=== PATIENT | male | born 1960 | race Caucasian/White ===

== ENCOUNTER 2023-01-24 11:52 | Emergency (ER) | payer MEDICARE ==
--- OUTSIDE RECORDS SUMMARY | 2023-01-24 11:56 | XMS REPORT | Continuity of Care Document ---
:1960 Author Organization [facility] t Address [address] [place] [address] [place] [id number] Care Team Providers Name Role Phone Nereida Mcgrath Attending Clinician Byrd_L Attending Clinician Unavailable PAOLO Attending Clinician Unavailable Maggie Attending Clinician Unavailable BWann Attending Clinician Unavailable Varun Rodriguez Attending Clinician Byrd_L Admitting Clinician Unavailable COOKIE_Sharron Admitting Clinician Unavailable Gurpreet_Malgorzata Admitting Clinician Unavailable BWann Admitting Clinician Unavailable Payers Payer Name Policy Type Policy Number Effective Date Expiration Date S radha [facility] [id number] 2021 (MEDICARE 00:00:00 REPLACEMENT HMO) Problems Condition Condition Condition Status Onset Resolution Last Treating Co mments Source Name Details Category Date Date Treatment Clinician Date Cervical Cervical Problem Active 2019-09-02 Memoria radiculopa radiculopa 23:23:12 l thy thy [place] (disorder) (disorder) Active Problem 09/02/2019 [facility] Disorder Disorder Problem Active 2019-09-02 Memoria of rotator of rotator 23:23:12 l cuff cuff [place] (disorder) (disorder) Active Problem 09/02/2019 [facility] Hypertensi Hypertens Problem Active 2019-09-02 Memoria ve malaika 23:23:12 l disorder, disorder, Herm leonarda systemic systemic arterial arterial (disorder) (disorder) Active Problem 09/02/2019 [facility] Neck pain Neck Problem Active 2019-09-02 Me moria (finding) pain 23:23:12 l (finding) [place] Active Problem 09/02/2019 [facility] Paresthesi Paresthes Problem Active 2019-09-02 Memoria a ia 23:23:12 l (finding) (finding) Herm leonarda Active Problem 09/02/2019 [facility] Allergies, Adverse Reactions, Alerts Allergy Allergy Status Severity Reaction(s) Onset Inactive Treating Comm ents Source Name Type Date Date Clinician No Known No Known Active Dinesh Iglesias Medicati l on on Ryan Allergie Allergie s s Social History Smoking Status Start Date Stop Date Source Social History 2018-01-08 20:41:16 [facility] Medications This patient has no known medications. Procedures This patient has no known procedures. Encounters Start End Encounter Admission Attending Care Care Encounter Source Date/Time Date/Time Type Type Clinicians Facility Department ID 2022-09-20 2022-09-20 CAV Nereida [id number] [facility] [id number] [facility] 15:30:00 16:30:00 Cookie [id number] Medical [id number] 2022-09-08 2022-09-08 Outpatient Byrd_L [facility] [id number] [facility] 00:00:00 00:00:00 [id number] Medica l Group 2022-09-08 2022-09-08 [facility] [id number] 00:00:00 00:00:00 [id number] Medica l Group 2022-04-05 2022-04-05 Outpatient Byrd_L [facility] [place] [id number] [facility] 00:00:00 00:00:00 [id number] Medica l Group 2022-04-05 2022-04-05 Outpatient Byrd_L G [facility] [place] [id number] [facility] 00:00:00 00:00:00 [id number] Medica l Group 2021-12-28 2021-12-28 Outpatient GAYLORD_S [facility] [id number] [facility] 00:00:00 00:00:00 [id number] Medica l Group 2021-12-25 2021-12-25 CAV Nereida [id number]. [id number]. CLAC [id number] [facility] 17:30:00 18:30:00 [place] [id number] Medical [id number] 2021-12-24 2021-12-24 Outpatient GAYLORD_S [facility] [id number] [facility] 00:00:00 00:00:00 [id number] Medica l Group 2021-12-17 2021-12-17 Outpatient Williams_V [facility] [id number] [facility] 00:00:00 00:00:00 [id number] Medica l Group 2021-12-04 2021-12-04 Outpatient BWilliams [facility]G [id number] [facility] 00:00:00 00:00:00 [id number] Medica l Group 2021-11-23 2021-11-23 Outpatient DMG DMG [id number] [facility] 03:46:00 03:46:00 [id number] Medica l Group 2021 2021 Outpatient DMG DMG [id number] [facility] 09:00:00 09:00:00 [id number] Medica l Group 2019-08-30 2019-09-01 Outside nullFlavo MNA [id number] Memoria 15:29:54 04:59:59 Medical r Neurology 03 l Records Mason Alexanderann 2019-08-30 2019-08-31 Outpatient MHMISCHER MHMISCHER [id number] 10:29:54 23:59:59 03 2019-05-21 2019-05-23 Outside nullFlavo MNA [id number] Memoria 14:57:04 05:59:59 Medical r Neurology 02 l Records Homertoshia Alexanderann 2019-05-21 2019-05-22 Outpatient MHMISCHER MHMISCHER [id number] 08:57:04 23:59:59 02 2018-04-16 2018-04-16 Ambulatory nullFlavo MNA [id number] Memoria 15:15:00 15:15:00 Pre-Reg r Neurology 03 l Mason Davis 2018-04-16 2018-04-16 Outpatient MHIE MHIE [id number] Memoria 09:15:00 09:15:00 Niru Davis 2018-04-16 2018-04-16 Outpatient Michael MHMISCHER MHMISCHER [id number] 09:15:00 09:15:00 Varun Mckeon 2018-01-08 2018-01-08 Outpatient MHIE MHIE [id number] Memoria 15:15:00 15:15:00 02 l Ryan 2017-12-11 2017-12-11 Outpatient [facility] [id number] Memoria 15:45:00 15:45:00 01 yong Davis 2017-11-25 2017-11-25 Outpatient [facility] [id number] Memoria 13:30:00 13:30:00 00 yong Davis Results This patient has no known results.
[2023-01-24 12:32] LABS: Absolute Lymphocytes (CBC) 1.2 K/uL (0.7-4.9); Lymphocytes % 36.7 % (15.3-44.8); MCV 94.3 fL (80-100); Platelets 271 thou/uL (152-406); RBC Red Blood Cell Count 4.45 M/uL (4.33-5.43)
[2023-01-24] MEDS ORDERED: NA CHLORIDE 0.9% 1,000 ML ONE (12:38)
[2023-01-24 12:42] LABS: Protime INR 1.11
[2023-01-24 12:50] LABS: Albumin 3.4 g/dL (3.4-5.0); Bilirubin Total 0.4 mg/dL (0.2-1.0); Potassium 3.9 mEq/L (3.5-5.1); Protein, Total 7.2 g/dL (6.4-8.2)
[2023-01-24 12:56] LABS: Specific Gravity 1.027 (1.005-1.030); Urine Bacteria <20 /HPF (<20); Urine Bilirubin NEGATIVE (Negative); Urine Blood 3+ (OVER) (Negative); Urine Clarity Extremely Turbid (Clear); Urine Color Brown (Yellow); Urine Glucose TRACE (Negative); Urine Mucus 3+ /HPF (None Seen); Urine Protein 2+ (Negative); Urine RBC >50 /HPF (None Seen); Urine Urobilinogen Normal (Normal)
--- NOTE | 2023-01-24 13:37 | RAD REPORT ---
EXAM DESCRIPTION: CT - Abdomen Pelvis W Contrast - 01/24/2023 1:04 pm CLINICAL HISTORY: Hematuria COMPARISON: none. TECHNIQUE: Computed axial tomography of the abdomen pelvis was obtained. 100 cc Isovue-300 was admin istered intravenously. Oral contrast was not requested which limits evaluation of bowel and appendix All CT scans are performed using dose optimization technique as appropriate and may include automated exposure control or mA/KV adjustment according to patient size. FINDINGS: Tiny right renal calculi. No hydronephrosis. 2.3 centimeter cyst 2.7 centimeter calculus left renal pelvis with mild to moderate hydronephrosis. Additional tiny left renal calculi Small right inguinal hernia contains a portion of bladder. Small left inguinal hernia containing fat The liver, spleen, pancreas and right adrenal gland demonstrate no significant abnormality. 2.7 x 1 centimeter left adrenal mass Hounsfield units 30 Moderate hiatal hernia Prominent spondylosis L2-3. Atherosclerosis. No evidence diverticulitis IMPRESSION: 2.7 centimeter calculus left renal pelvis resulting in mild to moderate hydronephrosis Small right inguinal hernia contains a portion of the bladder 2.7 centimeter left adrenal mass nonspecific but probably an adenoma. This could be confirmed with no nemergent MRI
--- NOTE | 2023-01-24 13:53 | ER ---
Nurse's Notes [facility] Name: Matt Bajwa Age: 62 yrs Sex: Male : 1960 Arrival Date: 01/24/2023 Time: 11:52 Bed 15 Private MD: Diagnosis: Gross hematuria;UTI/ Urinary tract infection, site not specified;2.7 cm calculus left renal pelvis with mild to moderate hydronephrosis Presentation: 01/24 12:09 Chief complaint: Blood in urine since this morning. Denies pain. Coronavirus screen: At this time, the client does not indicate any symptoms associated with coronavirus-19. Ebola Screen: No symptoms or risks identified at this time. Initial Sepsis Screen: Does the patient meet any 2 criteria? No. Patient's initial sepsis screen is negative. Does the patient have a suspected source of infection? No. Patient's initial sepsis screen is negative. Risk Assessment: Do you want to hurt yourself or someone else? Patient reports no desire to harm self or others. Onset of symptoms was January 24, 2023. 12:09 Method Of Arrival: Ambulatory hb 12:09 Acuity: JEFFERY 3 hb Historical: - Allergies: 12:10 No Known Allergies; hb - Home Meds: 12:10 Lisinopril Oral [Active]; Anoro Ellipta inhalation [Active]; gabapentin oral [Active]; hb Buspirone Oral [Active]; meloxicam oral [Active]; - PMHx: 12:10 Hypertensive disorder; hb - Immunization history:: Adult Immunizations up to date. - Social history:: Smoking status: Patient reports the use of cigarette tobacco products, smokes one pack cigarettes per day. Screenin:06 [facility] ED Fall Risk Assessment (Adult) History of falling in the last 3 months, mb9 including since admission No falls in past 3 months (0 pts) Confusion or Disorientation No (0 pts) Intoxicated or Sedated No (0 pts) Impaired Gait No (0 pts) Mobility Assist Device Used No (0 pt) Altered Elimination No (0 pt) Score/Fall Risk Level 0 - 2 = Low Risk Oriented to surroundings, Maintained a safe environment, Educated pt \T\ family on fall prevention, incl call for assistance when getting out of bed. Abuse screen: Denies threats or abuse. Nutritional screening: No deficits noted. Tuberculosis screening: No symptoms or risk factors identified. Assessment: 12:29 General: Appears in no apparent distress. Pain: Denies pain. Neuro: [facility] mb9 Agitation-Sedation Scale (RASS): 0 - Alert and Calm Level of Consciousness is awake, alert, obeys commands, Oriented to person, place, time, situation, Appropriate for age Reports weakness. Cardiovascular: Heart tones S1 S2 present Patient's skin is warm and dry. Respiratory: Airway is patent Respiratory effort is even, unlabored, Respiratory pattern is regular, symmetrical, Breath sounds are clear bilaterally. GI: Abdomen is flat, non-distended, Bowel sounds present X 4 quads. Reports nausea. : Urine is blood tinged. EENT: No signs and/or symptoms were reported regarding the EENT system. Derm: Skin is pink, warm \T\ dry. Musculoskeletal: Range of motion: intact in all extremities. 13:21 Reassessment: No changes from previously documented assessment. Patient and/or family mb9 updated on plan of care and expected duration. Pain level reassessed. Patient is alert, oriented x 3, equal unlabored respirations, skin warm/dry/pink. 14:25 Reassessment: No changes from previously documented assessment. Patient and/or family mb9 updated on plan of care and expected duration. Pain level reassessed. Patient is alert, oriented x 3, equal unlabored respirations, skin warm/dry/pink. 15:25 Reassessment: No changes from previously documented assessment. Patient and/or family mb9 updated on plan of care and expected duration. Pain level reassessed. Patient denies pain at this time. 16:25 Reassessment: Patient and/or family updated on plan of care and expected duration. Pain mb9 level reassessed. Patient is alert, oriented x 3, equal unlabored respirations, skin warm/dry/pink. Patient denies pain at this time. 17:30 Reassessment: No changes from previously documented assessment. Patient and/or family mb9 updated on plan of care and expected duration. Pain level reassessed. Patient is alert, oriented x 3, equal unlabored respirations, skin warm/dry/pink. 18:30 Reassessment: No changes from previously documented assessment. Patient and/or family mb9 updated on plan of care and expected duration. Pain level reassessed. Patient is alert, oriented x 3, equal unlabored respirations, skin warm/dry/pink. 19:32 Reassessment: Report given to [facility]. mb9 Vital Signs: 12:09 BP 167 / 80; Pulse 74; Resp 16; Temp 98.1(O); Pulse Ox 97% on R/A; Weight 79.38 kg; hb Height 5 ft. 8 in. ; Pain 0/10; 13:21 BP 152 / 88; Pulse 78; Resp 18; Pulse Ox 98% on R/A; mb9 14:48 BP 148 / 80; Pulse 68; Resp 16; Pulse Ox 98% on R/A; mb9 16:24 BP 133 / 99; Pulse 72; Resp 16; Pulse Ox 99% on R/A; mb9 12:09 Body Mass Index 26.61 (79.38 kg, 172.72 cm) hb 12:09 Pain Scale: Adult hb ED Course: 11:59 Patient arrived in ED. im 12:02 Luzmaria Esteves PA-C is PHCP. sb4 12:02 Ian Senior DO is Attending Physician. sb4 12:06 Stefanie Frazier, SRUTHI is Primary Nurse. mb9 12:06 Arm band placed on. mb9 12:06 Placed in gown. Bed in low position. Call light in reach. Side rails up X 1. Client mb9 placed on continuous cardiac and pulse oximetry monitoring. NIBP monitoring applied. 12:10 Triage completed. hb 12:24 Ptt, Activated Sent. mb9 12:24 PT-INR Sent. mb9 12:24 CMP Sent. mb9 12:24 Lipase Sent. mb9 12:24 No provider procedures requiring assistance completed. Inserted saline lock: 20 gauge mb9 in right forearm, using aseptic technique. 13:06 CT Abd/Pelvis - IV Contrast Only In Process Unspecified. EDMS 15:24 Transfer initiated with [facility]. mb4 18:[address] [facility] by Dr. Navarrete. mb4 18:40 [facility] is sending a crew for transport. mb4 18:43 Patient transferred, IV remains in place. mb9 Administered Medications: 12:31 Drug: NS 0.9% IV 1000 ml Route: IV; Rate: 1 bolus; Site: right forearm; mb9 14:54 Follow up: Response: No adverse reaction; IV Status: Completed infusion mb9 14:13 Drug: Rocephin IV 1 grams Route: IV; Rate: calculated rate; Site: right forearm; mb9 14:54 Follow up: Response: No adverse reaction; IV Status: Completed infusion 9 Medication: 12:15 VIS not applicable for this client. mb9 Outcome: 13:52 ER care complete, transfer ordered by MD. craig 18:[address] [facility], Transfer form completed. X-rays sent w/ [email or web address] patient. Note: report called to SRUTHI Andrews 18:43 Condition: stable 18:43 Instructed on the need for transfer. 19:32 Patient left the ED. mb9 Addendum: 01/27/2023 10:21 Addendum: Culture Results: Other negative culture report faxed to [facility] b d as requested by [facility]. Signatures: Dispatcher [employer] EDMS Kady Flor Heather, RN RN hb Baxter, Mackenzie mb4 Luzmaria Esteves PA-C PA-C [email or web address] Stefanie Frazier RN RN mb9 Elyssa Leal Corrections: (The following items were deleted from the chart) 01/24 12:12 12:10 Social history: Smoking status: Patient reports the use of cigarette tobacco hb products, hb
--- NOTE | 2023-01-24 13:53 | EDPHYS ---
Physician Documentation [facility] Name: Matt Bajwa Age: 62 yrs Sex: Male : 1960 Arrival Date: 01/24/2023 Time: 11:52 Bed 15 Private MD: ED Physician Ian Senior HPI: 01/24 14:15 This 62 yrs old Male presents to ER via Ambulatory with complaints of urinating blood. sb4 14:15 patient complaining of gross hematuria that started this morning. he states this sb4 happened to him about 1 month ago and was told to follow up with urology but it resolved so he never did. states his urine is dark red today. he has had mild intermittent pain in his left groin but no flank pain, no fever, no nausea, vomiting, diarrhea, difficulty urinating, burning with urination. Historical: - Allergies: 12:10 No Known Allergies; hb - Home Meds: 12:10 Lisinopril Oral [Active]; Anoro Ellipta inhalation [Active]; gabapentin oral [Active]; hb Buspirone Oral [Active]; meloxicam oral [Active]; - PMHx: 12:10 Hypertensive disorder; hb - Immunization history:: Adult Immunizations up to date. - Social history:: Smoking status: Patient reports the use of cigarette tobacco products, smokes one pack cigarettes per day. ROS: 14:15 Constitutional: Negative for fever, chills, and weight loss. sb4 14:15 : Positive for hematuria. 14:15 All other systems are negative. Exam: 14:15 Constitutional: This is a well developed, well nourished patient who is awake, alert, sb4 and in no acute distress. Head/Face: Normocephalic, atraumatic. Eyes: Extra-ocular motions intact. Periorbital areas with no swelling, redness, or edema. ENT: Mucous membranes moist. Cardiovascular: Regular rate and rhythm with a normal S1 and S2. Respiratory: Lungs have equal breath sounds bilaterally, clear to auscultation and percussion. No rales, rhonchi or wheezes noted. No increased work of breathing, no retractions or nasal flaring. Abdomen/GI: Soft, non-tender, no distension. Skin: Warm, dry with normal turgor. Normal color with no rashes, no lesions, and no evidence of cellulitis. MS/ Extremity: Pulses equal, no cyanosis. Neurovascular intact. Full, normal range of motion. Neuro: Awake and alert, GCS 15, oriented to person, place, time, and situation. Cranial nerves II-XII grossly intact. Motor strength 5/5 in all extremities. Sensory grossly intact. Cerebellar exam normal. Normal gait. Vital Signs: 12:09 BP 167 / 80; Pulse 74; Resp 16; Temp 98.1(O); Pulse Ox 97% on R/A; Weight 79.38 kg; hb Height 5 ft. 8 in. ; Pain 0/10; 13:21 BP 152 / 88; Pulse 78; Resp 18; Pulse Ox 98% on R/A; mb9 14:48 BP 148 / 80; Pulse 68; Resp 16; Pulse Ox 98% on R/A; mb9 16:24 BP 133 / 99; Pulse 72; Resp 16; Pulse Ox 99% on R/A; mb9 12:09 Body Mass Index 26.61 (79.38 kg, 172.72 cm) hb 12:09 Pain Scale: Adult hb MDM: 12:07 Patient medically screened. 4 14:15 Differential diagnosis: UTI, prostatitis, urethritis, BPH, nephrolithiasis, 4 ureterolithiasis, bladder mass. Data reviewed: vital signs, nurses notes, lab test result(s), radiologic studies, I have discussed the patient's presentation/case with the attending Emergency Department Physician;. Independent interpretation of the following test(s) in the Emergency Department CT Scan: My interpretation is my interpretation of the CT abdomen pelvis images are large left sided kidney stone with hydronephrosis. Care significantly affected by the following chronic conditions: Hypertension. Counseling: I had a detailed discussion with the patient and/or guardian regarding the historical points, exam findings, and any diagnostic results supporting the discharge/admit diagnosis, the presence of at least one elevated blood pressure reading (>120/80) during this emergency department visit, lab results, radiology results, the need to transfer to another facility, [facility] does not immediately have the required specialist. 17:46 Awaiting: transfer to another facility, transfer was initiated to [address] 2 hours ago. still no call back. requesting transfer to another facilty.. 18:00 Management of patient was discussed with the following: Ditto Machine Operator: Urologist at [place] [address] Dr. Reyes, agrees to consult. 18:15 Management of patient was discussed with the following: Hospitalist: Hospitalist at [address] Neely, accepts patient. 01/24 12:17 Order name: CBC with Diff; Complete Time: 12:42 sb4 01/24 12:17 Order name: CMP; Complete Time: 12:56 sb4 01/24 12:17 Order name: Lipase; Complete Time: 12:56 sb4 01/24 12:17 Order name: UAM; Complete Time: 13:11 sb4 01/24 12:17 Order name: PT-INR; Complete Time: 12:44 sb4 01/24 12:17 Order name: Ptt, Activated; Complete Time: 12:44 sb4 01/24 13:07 Order name: Urine Culture EDMS 01/24 12:17 Order name: CT Abd/Pelvis - IV Contrast Only; Complete Time: 13:37 sb4 01/24 12:17 Order name: IV Saline Lock; Complete Time: 12:24 sb4 01/24 12:17 Order name: Labs collected and sent; Complete Time: 12:24 sb4 Administered Medications: 12:31 Drug: NS 0.9% IV 1000 ml Route: IV; Rate: 1 bolus; Site: right forearm; mb9 14:54 Follow up: Response: No adverse reaction; IV Status: Completed infusion mb9 14:13 Drug: Rocephin IV 1 grams Route: IV; Rate: calculated rate; Site: right forearm; mb9 14:54 Follow up: Response: No adverse reaction; IV Status: Completed infusion mb9 Disposition: 15:02 Co-signature as Attending Physician, Ian MARTINES was immediately available on-site ms3 in the Emergency Department for consultation in the care of the patient. Disposition Summary: 01/24/23 13:52 Transfer Ordered Transfer Location: [facility] sb4 Reason: Higher level of care sb4 Condition: Fair sb4 Problem: an ongoing problem sb4 Symptoms: are unchanged sb4 Accepting Physician: Dr. Neely(01/24/23 19:32) mb9 Diagnosis - 2.7 cm stone with moderate hydronephrosis sb4 - Gross hematuria sb4 - UTI/ Urinary tract infection, site not specified sb4 - 2.7 cm calculus left renal pelvis with mild to moderate hydronephrosis sb4 Forms: - Medication Reconciliation Form sb4 - SBAR form sb4 Signatures: Dispatcher [employer] Zina Jorgensen, RN RN Ian Senior, DO ms3 Luzmaria Esteves, PANewC PALeonard sb4 Stefanie Frazier RN RN mb9 Corrections: (The following items were deleted from the chart) 12:12 12:10 Social history: Smoking status: Patient reports the use of cigarette tobacco hb products, 13:54 13:52 Urologist sb4 sb4 13:55 13:54 Urologist sb4 sb4 18:16 13:55 Urologist sb4 sb4 19:32 18:16 Dr. Neely sb4 mb9
[2023-01-24] MEDS ORDERED: CEFTRIAXONE 1000 MG/VIAL ONE (14:12)
[2023-01-24 20:15] VITALS: TEMP 98.1
[2023-01-24 20:41] VITALS: BP 152/88; O2SAT 98
== END 2023-01-24 19:32 | disposition short-term general hospital (02) ==
LOC: ER 11:52
DX: N39.0 Urinary tract infection, site not specified (principal); N13.2 Hydronephrosis with renal and ureteral calculous obstruction; I10 Essential (primary) hypertension; F17.210 Nicotine dependence, cigarettes, uncomplicated
CPT/HCPCS: 96365; 96361; 85025; 81001; 87086; 36415; 85610; 85730; 83690; 80053; 74177; 99285; Q9967; J7030; J0696; 87088